=== PATIENT | female | born 1990 ===

== ENCOUNTER 2021-09-17 08:50 | Inpatient (IN) | payer BC ==
[~2021-09-17] VITALS: Ht 165.1 cm; Wt 87.0 kg
[2021-09-17] MEDS ORDERED: ALBU90OI INH (09:29)
[2021-09-17 09:59] LABS: BASOPHILS ABSOLUTE AUTO 0.01 K/mm3 (0.00-0.23); BASOPHILS PERCENT AUTO 0 % (0-2); EOSINOPHILS ABSOLUTE AUTO 0.02 K/mm3 (0.00-0.68); EOSINOPHILS PERCENT AUTO 0 % (0-6); Hematocrit 31.1 % (33.0-51.0); Hemoglobin 9.7 g/dL (11.5-16.0); IMMATURE GRAN ABSOLUTE AUTO 0.08 K/mm3 (0.00-0.10); IMMATURE GRAN PERCENT AUTO 1 % (0-1); LYMPHOCYTES PERCENT AUTO 29 % (21-46); MONOCYTES ABSOLUTE AUTO 0.67 K/mm3 (0.16-1.47); MONOCYTES PERCENT AUTO 8 % (4-13); Mean Corpuscular HGB 25.9 pg (26.0-34.0); Mean Corpuscular HGB Conc 31.2 g/dL (31.5-36.5); Mean Corpuscular Volume 83 fL (80-100); Mean Platelet Volume 10.1 fL (9.1-12.4); NEUTROPHILS PERCENT AUTO 62 % (41-73); Platelet Count 227 K/mm3 (150-400); RDW Coefficient Variation 13.1 % (11.7-14.2); RDW Standard Deviation 39.9 fL (35.1-46.3); Red Blood Cell Count 3.74 M/mm3 (3.80-5.20); White Blood Cell Count 8.58 K/mm3 (4.00-11.30)
[2021-09-17 10:21] LABS: Influenza A, PCR NEGATIVE (NEGATIVE); Influenza B, PCR NEGATIVE (NEGATIVE); Resp Syncytial Virus, PCR NEGATIVE (NEGATIVE); SARS-Cov-2 (COVID-19) PCR, MMC NEGATIVE (NEGATIVE)
--- NOTE | 2021-09-17 12:32 | NUR ---
09/17/21 1232 Jie Everett VIABLE BABY BOY BORN AT 1222.
--- NOTE | 2021-09-18 05:24 | NUR ---
PATIENT REPORTS THAT THE PAS WERE PAINFUL AND SHE REQUESTS TO REMOVE THEM. EDUCATION GIVEN REGARDING THE PURPOSE OF PAS BUT PATIENT DECLINES TO WEAR THEM. THEY WERE REMOVED.
[2021-09-18 06:08] LABS: BASOPHILS ABSOLUTE AUTO 0.02 K/mm3 (0.00-0.23); BASOPHILS PERCENT AUTO 0 % (0-2); EOSINOPHILS ABSOLUTE AUTO 0.01 K/mm3 (0.00-0.68); EOSINOPHILS PERCENT AUTO 0 % (0-6); Hematocrit 29.7 % (33.0-51.0); Hemoglobin 9.3 g/dL (11.5-16.0); IMMATURE GRAN ABSOLUTE AUTO 0.07 K/mm3 (0.00-0.10); IMMATURE GRAN PERCENT AUTO 1 % (0-1); LYMPHOCYTES ABSOLUTE AUTO 1.83 K/mm3 (0.84-5.20); LYMPHOCYTES PERCENT AUTO 16 % (21-46); MONOCYTES ABSOLUTE AUTO 0.83 K/mm3 (0.16-1.47); MONOCYTES PERCENT AUTO 7 % (4-13); Mean Corpuscular HGB 25.3 pg (26.0-34.0); Mean Corpuscular HGB Conc 31.3 g/dL (31.5-36.5); Mean Corpuscular Volume 81 fL (80-100); Mean Platelet Volume 10.3 fL (9.1-12.4); NEUTROPHILS ABSOLUTE AUTO 8.71 K/mm3 (1.96-9.15); NEUTROPHILS PERCENT AUTO 76 % (41-73); Platelet Count 192 K/mm3 (150-400); RDW Coefficient Variation 13.1 % (11.7-14.2); RDW Standard Deviation 38.7 fL (35.1-46.3); Red Blood Cell Count 3.67 M/mm3 (3.80-5.20); White Blood Cell Count 11.47 K/mm3 (4.00-11.30)
--- NOTE | 2021-09-19 00:40 | NUR ---
PATIENT HAD ELEVATED BLOOD PRESSURES. PLEASE SEE VITAL SIGNS. LILI MAJANO IS PROVIDER WARPING MACHINE OPERATOR AND SHE WAS NOTIFIED THAT PATIENT HAD ELEVATED BLOOD PRESSURES AND IS CURRENTLY IN SIGNIFICANT. SHE RECIEVED IBUPROFEN AT TIME OF FIRST BLOOD PRESSURE. PATIENT WAS GIVEN KPAD AND REPOSITIONED FOR LOWER BACK PAIN WELL. BLOOD PRESSURE WAS REASSESSED AND WAS BACK IN NORMAL LIMITS. BLOOD PRESSURE WAS ASSESSED MANUALLY WELL AND WAS WNL. NO CHANGES WERE MADE.
[2021-09-19] MEDS ORDERED: Percocet 5-3251 EACH PO (14:55)
[2021-09-19] MEDS ORDERED: IBU800 M1 PO (14:55)
--- NOTE | 2021-09-19 18:30 | NUR ---
Went to speak with dad and make appointments and sign papers with pt when she returned from being outside. He informed me that she had gone to their trailer. I informed him that she would be discharged then and would no longer be able to get the medications she was going to get prior to discharge. He verbalized understanding and said he would inform her. Pt then discharged to boarder status.
--- NOTE | 2021-09-21 15:30 | NUR ---
PPFU. PT SCHEDULED FOR PPFU TODAY AT 1100. PT DID NOT SHOW, MESSAGE LEFT ON PHONE NUMBER PROVIDED DURING ADMIT. PT HAS NOT RETURNED PHONE CALL.
--- NOTE | 2021-09-27 11:32 | NUR ---
PPFU. PT CALLED MONDAY EVENING (09/24) TO RESCHEDULE PPFU APPOINTMENT MISSED ON 09-21-21. PT IS NOW 10 DAYS , RN INSTRUCTED PT TO CONTACT DR. WRIGHT'S OFFICE FOR ROUTINE FOLLOW UP AT THIS TIME. NB REMOVED FROM PARENTAL CUSTODY. PT AND SO CAME TO [facility] EARLY MONDAY TO ATTEMPT TO COME INTO [facility] AFTER BEING TOLD THEY WERE NOT ALLOWED BACK ON THE UNIT AT THIS TIME.
== END 2021-09-19 18:35 | disposition home or self-care (01) | DRG 787 ==
LOC: BC 08:50
PROVIDERS: ADMIT Obstetrics & Gynecology
PROC: 10D00Z1 Extraction of Products of Conception, Low, Open Approach (ICD-10-PCS; principal; 2021-09-17 11:15)
DX: O34.211 Maternal care for low transverse scar from previous cesarean delivery (principal); O99.324 Drug use complicating childbirth; Z3A.40 40 weeks gestation of pregnancy; Z37.0 Single live birth; Z20.822 Contact with and (suspected) exposure to COVID-19; F15.10 Other stimulant abuse, uncomplicated; O99.52 Diseases of the respiratory system complicating childbirth; J45.909 Unspecified asthma, uncomplicated; Z90.89 Acquired absence of other organs; Z98.890 Other specified postprocedural states; Z79.899 Other long term (current) drug therapy
CPT/HCPCS: 0241U; 36415; 85025; 86850; 86900; 86901; A9270; J0690; J1885; J2370; J2590; J2765; J7120

== ENCOUNTER 2022-10-04 07:02 | Inpatient (IN) | payer BC, OTHER ==
[~2022-10-04] VITALS: Ht 162.6 cm; Wt 76.3 kg
[~2022-10-04 07:02] MED LIST: ALBU90OI INH; IBU800 M1 PO; Percocet 5-3251 EACH PO
[2022-10-04 08:11] LABS: BASOPHILS ABSOLUTE AUTO 0.02 K/mm3 (0.00-0.23); BASOPHILS PERCENT AUTO 0 % (0-2); EOSINOPHILS ABSOLUTE AUTO 0.27 K/mm3 (0.00-0.68); EOSINOPHILS PERCENT AUTO 4 % (0-6); Hematocrit 33.2 % (33.0-51.0); Hemoglobin 10.9 g/dL (11.5-16.0); IMMATURE GRAN ABSOLUTE AUTO 0.02 K/mm3 (0.00-0.10); IMMATURE GRAN PERCENT AUTO 0 % (0-1); LYMPHOCYTES PERCENT AUTO 33 % (21-46); MONOCYTES ABSOLUTE AUTO 0.48 K/mm3 (0.16-1.47); MONOCYTES PERCENT AUTO 7 % (4-13); Mean Corpuscular HGB 26.3 pg (26.0-34.0); Mean Corpuscular HGB Conc 32.8 g/dL (31.5-36.5); Mean Corpuscular Volume 80 fL (80-100); Mean Platelet Volume 10.7 fL (9.1-12.4); NEUTROPHILS ABSOLUTE AUTO 3.63 K/mm3 (1.96-9.15); NEUTROPHILS PERCENT AUTO 55 % (41-73); Platelet Count 263 K/mm3 (150-400); RDW Coefficient Variation 14.3 % (11.7-14.2); RDW Standard Deviation 41.1 fL (35.1-46.3); Red Blood Cell Count 4.14 M/mm3 (3.80-5.20); White Blood Cell Count 6.62 K/mm3 (4.00-11.30)
[2022-10-07 12:10] LABS: DILUTE PROTHROMBIN TIME(DPT) 33.8 sec (0.0-47.6); DPT CONFIRM RATIO 0.99 Ratio (0.00-1.34); DRVVT 33.9 sec (0.0-47.0); LUPUS REFLEX INTERPRETATION Comment: (.); PTT-LA 31.2 sec (0.0-43.5); THROMBIN TIME 14.5 sec (0.0-23.0)
== END 2022-10-05 10:30 | disposition home or self-care (01) | DRG 806 ==
LOC: OBS 07:02 → BC 07:35
PROVIDERS: ADMIT Advanced Practice Midwife
PROC: 10E0XZZ Delivery of Products of Conception, External Approach (ICD-10-PCS; principal; 2022-10-04)
PROC: 10907ZC Drainage of Amniotic Fluid, Therapeutic from Products of Conception, Via Natural or Artificial Opening (ICD-10-PCS; 2022-10-04)
PROC: 3E0R3BZ Introduction of Anesthetic Agent into Spinal Canal, Percutaneous Approach (ICD-10-PCS; 2022-10-04)
PROC: 00HU33Z Insertion of Infusion Device into Spinal Canal, Percutaneous Approach (ICD-10-PCS; 2022-10-04)
PROC: 0U7C7ZZ Dilation of Cervix, Via Natural or Artificial Opening (ICD-10-PCS; 2022-10-04)
PROC: 10H07YZ Insertion of Other Device into Products of Conception, Via Natural or Artificial Opening (ICD-10-PCS; 2022-10-04)
DX: O34.211 Maternal care for low transverse scar from previous cesarean delivery (principal); O36.4XX0 Maternal care for intrauterine death, not applicable or unspecified; Z37.1 Single stillbirth; O99.324 Drug use complicating childbirth; F15.11 Other stimulant abuse, in remission; O70.0 First degree perineal laceration during delivery; Z3A.36 36 weeks gestation of pregnancy
CPT/HCPCS: 36415; 51702; 59200; 84443; 85025; 85613; 85670; 85705; 85732; 86762; 86850; 86900; 86901; 86923; A9270; J1885; J2210; J2590; J3010; J7120

== ENCOUNTER 2023-06-02 10:31 | Emergency (ER) | payer BC, OTHER ==
[~2023-06-02] VITALS: Ht 165.1 cm; Wt 62.6 kg
[2023-06-02] MEDS ORDERED: BIRTH CONTROL PILLS (10:39)
[2023-06-02 11:02] LABS: BASOPHILS ABSOLUTE AUTO 0.02 K/mm3 (0.00-0.23); BASOPHILS PERCENT AUTO 0 % (0-2); EOSINOPHILS ABSOLUTE AUTO 0.11 K/mm3 (0.00-0.68); EOSINOPHILS PERCENT AUTO 2 % (0-6); Hematocrit 36.1 % (33.0-51.0); Hemoglobin 11.8 g/dL (11.5-16.0); IMMATURE GRAN PERCENT AUTO 0 % (0-1); LYMPHOCYTES ABSOLUTE AUTO 1.72 K/mm3 (0.84-5.20); LYMPHOCYTES PERCENT AUTO 29 % (21-46); MONOCYTES ABSOLUTE AUTO 0.24 K/mm3 (0.16-1.47); MONOCYTES PERCENT AUTO 4 % (4-13); Mean Corpuscular HGB 28.6 pg (26.0-34.0); Mean Corpuscular HGB Conc 32.7 g/dL (31.5-36.5); Mean Corpuscular Volume 88 fL (80-100); Mean Platelet Volume 10.1 fL (9.1-12.4); NEUTROPHILS ABSOLUTE AUTO 3.81 K/mm3 (1.96-9.15); NEUTROPHILS PERCENT AUTO 65 % (41-73); Platelet Count 252 K/mm3 (150-400); RDW Coefficient Variation 12.4 % (11.7-14.2); Red Blood Cell Count 4.12 M/mm3 (3.80-5.20)
[2023-06-02 11:30] LABS: Albumin, Blood 3.8 g/dL (3.4-5.0); Albumin/Globulin Ratio 1.3 (0.8-1.8); Bilirubin, Total 0.6 mg/dL (0.1-1.0); Bun/Creatinine Ratio 22.6 (12.0-20.0); Calcium, Blood 8.9 mg/dL (8.5-10.1); Creatinine, Blood 0.62 mg/dL (0.40-1.00); Potassium, Blood 3.4 mmol/L (3.5-5.5); Total Protein, Blood 6.8 g/dL (6.4-8.2)
[2023-06-02 12:25] VITALS: BP 126/98
== END 2023-06-02 12:35 | disposition home or self-care (01) ==
LOC: ER 10:31
PROVIDERS: Student in an Organized Health Care Education/Training Program
DX: R07.9 Chest pain, unspecified (principal); E87.6 Hypokalemia; J45.909 Unspecified asthma, uncomplicated; Z79.899 Other long term (current) drug therapy
CPT/HCPCS: 71046; 80053; 84484; 85025; 93005; 93010; 99285-25; A9270

== ENCOUNTER 2023-06-10 19:20 | Emergency (ER) | payer BC, OTHER ==
[~2023-06-10] VITALS: Ht 162.6 cm; Wt 59.0 kg
[~2023-06-10 19:20] MED LIST changes: +BIRTH CONTROL PILLS
[2023-06-10 19:54] VITALS: BP 119/99
== END 2023-06-10 22:20 | disposition home or self-care (01) ==
LOC: ER 19:20
DX: F41.9 Anxiety disorder, unspecified (principal); J45.909 Unspecified asthma, uncomplicated; Z59.01 Sheltered homelessness
CPT/HCPCS: 93005; 93010; 99283-25